=== PATIENT | female | born 1995 | race Hispanic/Latino ===

== ENCOUNTER 2019-01-07 19:10 | Emergency (ER) | payer BC, OTHER, SELFPAY ==
[2019-01-07] MEDS ORDERED: Ondansetron ODT 4 MG TAB ONE (19:42)
== END 2019-01-07 19:42 | disposition home or self-care (01) ==
LOC: BURERS 19:10
DX: A08.4 Viral intestinal infection, unspecified (principal)
CPT/HCPCS: 99283; Q0162